=== PATIENT | male | born 1990 | race Caucasian/White ===

== ENCOUNTER 2018-01-27 17:59 | Emergency (ER) | payer BC ==
--- OUTSIDE RECORDS SUMMARY | 2018-01-27 18:02 | XMS REPORT | Clinical Summary ---
:1990 Author Organization [facility] Address [address] [place] [address] Care Team Providers Name Role Phone Asked, No Pcp Primary Care Provider Unavailable Allergies No Known Allergies Medications Not on file Active Problems Not on file Social History Tobacco Use Types Packs/Day Years Used Date Never Assessed Alcohol Use Drinks/Week oz/Week Comments Yes Sex Assigned at Date Recorded Not on file Job Start Date Occupation Industry Not on file Not on file Not on file Travel History Travel Start Travel End No recent travel history available. Last Filed Vital Signs Not on file Plan of Treatment Health Maintenance Due Date Last Done Comments INFLUENZA VACCINE 09/11/2017 Results Not on fileafter 01/26/2017 Insurance Payer Benefit Plan / Group Subscriber ID Type Phone Address BCBS BCBS CHOICE PPO/[employer]ER[employer] EMPL PPO xxxxxxxxxxxx PPO (Home) [place] [address] Advance Directives Patient has advance care planning documents on file. For more information, please contact:[address] [address]
[2018-01-27 19:22] LABS: Absolute Lymphocytes (CBC) 1.9 K/uL (0.7-4.9); Absolute Monocytes 1.3 K/uL (0.1-1.3); Absolute Neutrophil 8.8 K/uL (1.8-8.0); Basophils % 0.8 % (0-1.3); Hematocrit 43.1 % (39.6-49.0); Lymphocytes % 15.7 % (15.3-44.8); Monocytes % 10.4 % (3.3-12.3); Protime INR 1.24; RBC Red Blood Cell Count 4.77 M/uL (4.33-5.43)
[2018-01-27 19:30] LABS: ALT/SGPT 69 U/L (12-78); AST/SGOT 125 U/L (15-37); Alkaline Phosphatase 110 U/L (45-117); BUN Blood Urea Nitrogen 31 mg/dL (7-18); Bicarbonate 26 mmol/L (21-32); Bilirubin Direct 0.2 mg/dL (0-0.2); Bilirubin Total 0.7 mg/dL (0.2-1.0); Glucose Level 92 mg/dL (74-106); Potassium 3.5 mmol/L (3.5-5.1); Protein, Total 7.7 g/dL (6.4-8.2); Sodium Level 136 mmol/L (136-145)
[2018-01-27 22:02] LABS: Barbiturates NEGATIVE (NEGATIVE); Benzodiazepines NEGATIVE (NEGATIVE); Cocaine NEGATIVE (NEGATIVE); METHAMPHETAM POSITIVE (NEGATIVE); Methadone NEGATIVE (NEGATIVE); Opiates NEGATIVE (NEGATIVE); Phencyclidine NEGATIVE (NEGATIVE); THC Cannibis NEGATIVE (NEGATIVE)
[2018-01-27 22:15] LABS: Urine Blood NEGATIVE (NEG); Urine Glucose NEGATIVE (NEG); Urine Protein NEGATIVE (NEG); Urine Specific Gravity 1.025 (1.005-1.030)
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
--- NOTE | 2018-01-28 11:07 | EKG ---
Test Date: 2018-01-27 Test Time: 18:44:36 Machine Joint Cutter: BELEN MEASUREMENT RESULTS: Intervals: Rate: 50 TX: 134 QRSD: 96 QT: 444 QTc: 404 [place]: P: 55 TX: 134 QRS: 73 T: 66 INTERPRETIVE STATEMENTS: Sinus bradycardia Possible Left atrial enlargement Borderline ECG Compared to ECG 01/12/2010 07:23:33 Sinus rhythm no longer present Electronically Signed On 01-28-18 11:05:58 CHILD WELFARE COUNSELOR by Keny Ponce
[2018-01-30 13:55] LABS: HIV 1/2 Antibody Diff Not indicated.; HIV AG/AB 4TH GEN Non-reactive (Non-reactive)
[2018-01-30 21:47] LABS: HBsAG Nonreactive (Nonreactive); Hepatitis A IgM Antibody Nonreactive
== END 2018-01-28 02:57 | disposition home or self-care (01) ==
LOC: ER 17:59
DX: F29 Unspecified psychosis not due to a substance or known physiological condition (principal); T43.625A Adverse effect of amphetamines, initial encounter; F41.9 Anxiety disorder, unspecified
CPT/HCPCS: 36415; 80048; 80074; 80076; 80307; 80320; 80329; 81003; 85025; 85610; 87389; 93005; 99285

== ENCOUNTER 2018-11-05 18:53 | Emergency (ER) | payer BC, SELFPAY ==
[2018-11-05] MEDS ORDERED: NA CHLORIDE 0.9% 1,000 ML ONE (19:48)
[2018-11-05 20:04] LABS: Absolute Lymphocytes (CBC) 1.7 K/uL (0.7-4.9); Basophils % 0.8 % (0-1.3); Hematocrit 40.9 % (39.6-49.0); Lymphocytes % 34.3 % (15.3-44.8); MPV 7.7 fL (7.6-11.3); Protime INR 0.93; RBC Red Blood Cell Count 4.67 M/uL (4.33-5.43)
--- NOTE | 2018-11-05 20:06 | RAD REPORT ---
EXAM DESCRIPTION: Zoila Single View11/05/2018 7:50 pm CLINICAL HISTORY: Chest pain COMPARISON: 2009 FINDINGS: The lungs appear clear of acute infiltrate. The heart is normal size IMPRESSION: No acute abnormalities displayed
[2018-11-05 20:26] LABS: ALT/SGPT 80 U/L (12-78); AST/SGOT 54 U/L (15-37); Albumin 4.4 g/dL (3.4-5.0); Alkaline Phosphatase 102 U/L (45-117); BUN Blood Urea Nitrogen 15 mg/dL (7-18); Bicarbonate 27 mmol/L (21-32); Bilirubin Direct < 0.1 mg/dL (0-0.2); Bilirubin Total 0.3 mg/dL (0.2-1.0); Glucose Level 98 mg/dL (74-106); Magnesium 1.7 mg/dL (1.8-2.4); NT PRO-BNP 16 pg/mL (<125); Potassium 3.5 mmol/L (3.5-5.1); Protein, Total 7.9 g/dL (6.4-8.2); Sodium Level 138 mmol/L (136-145); Troponin (Emerg Dept Use Only) < 0.02 ng/mL (0.0-0.045)
--- NOTE | 2018-11-05 20:56 | ER ---
Nurse's Notes [facility] Name: Shaggy Castañeda Age: 28 yrs Sex: Male : 1990 Arrival Date: 11/05/2018 Time: 18:55 Bed 5 Private MD: Diagnosis: Chest pain, unspecified-non cardiac;Anxiety disorder, unspecified;Essential (primary) hypertension;Hypomagnesemia Presentation: 11/05 19:03 Presenting complaint: Patient states: i was at work my chest started hurting about 5, i tw2 felt a panic attack coming on, i called my dad he picked me up and took me to [facility] and my pressure was really high 190's. Transition of care: patient was not received from another setting of care. Onset of symptoms was November 05, 2018. Risk Assessment: Do you want to hurt yourself or someone else? Patient reports no desire to harm self or others. Initial Sepsis Screen: Does the patient meet any 2 criteria? No. Patient's initial sepsis screen is negative. Does the patient have a suspected source of infection? No. Patient's initial sepsis screen is negative. Care prior to arrival: None. 19:03 Method Of Arrival: Ambulatory tw2 19:03 Acuity: NEGRO 3 tw2 Triage Assessment: 19:06 General: Appears in no apparent distress. Behavior is anxious. Pain: Complains of pain tw2 in chest. Cardiovascular: Reports chest pain. Historical: - Allergies: 19:05 No Known Allergies; tw2 - Home Meds: 19:05 BuSpar Oral [Active]; Seroquel Oral [Active]; Wellbutrin Oral [Active]; Buspirone Oral tw2 [Active]; Lexapro Oral [Active]; - PMHx: 19:05 Anxiety; tw2 - PSHx: 19:05 None; tw2 - Immunization history:: Adult Immunizations. - Social history:: Smoking status: Patient uses alcohol, "6 pk every other night". - Ebola Screening: : Patient denies travel to an Ebola-affected area in the 21 days before illness onset. - Family history:: not pertinent. Screenin:20 Abuse screen: Denies threats or abuse. Nutritional screening: No deficits noted. bb Tuberculosis screening: No symptoms or risk factors identified. Fall Risk None identified. Assessment: 19:20 General: Appears in no apparent distress. Behavior is calm, cooperative. Pain: bb Complains of pain in chest Pain does not radiate. Pain began today. Neuro: Level of Consciousness is awake, alert, obeys commands, Oriented to person, place, time, situation. Cardiovascular: Heart tones S1 S2 present Capillary refill < 3 seconds Patient's skin is warm and dry. Pulses are all present. Edema is absent. Respiratory: Respiratory effort is even, unlabored, Respiratory pattern is regular, Breath sounds are clear bilaterally. GI: Abdomen is non-distended. Derm: Skin is pink, warm \\T\\ dry. Musculoskeletal: Circulation, motion, and sensation intact. 21:14 Reassessment: Patient and/or family updated on plan of care and expected duration. Pain tl1 level reassessed. Patient is alert, oriented x 3, equal unlabored respirations, skin warm/dry/pink. Patient denies pain at this time. Patient states feeling better. Patient states symptoms have improved. Cardiovascular: Denies chest pain. Respiratory: Airway is patent Trachea midline Respiratory effort is even, unlabored, Respiratory pattern is regular, symmetrical, Breath sounds are clear bilaterally. Vital Signs: 19:06 BP 160 / 101; Pulse 106; Resp 18; Temp 98.4(O); Pulse Ox 100% on R/A; Weight 70.31 kg tw2 (R); Pain 4/10; 20:00 BP 151 / 102; Pulse 118; Resp 17; Pulse Ox 98% ; Pain 4/10; tl1 21:12 BP 136 / 100; Pulse 114; Resp 17; Temp 98.4; Pulse Ox 98% on R/A; Pain 4/10; tl1 ED Course: 18:55 Patient arrived in ED. as 19:04 Triage completed. tw2 19:06 Arm band placed on. tw2 19:07 EKG completed in triage. Results shown to MD. Antipyretics given from triage as ordered tw2 by an ER provider. Antipyretics given from triage as ordered by an ER provider. 19:19 Inserted saline lock: 20 gauge in right antecubital area, using aseptic technique. jb5 Blood collected. 19:20 Patient has correct armband on for positive identification. Bed in low position. Call bb light in reach. Adult w/ patient. 19:20 EKG done, by ED staff, reviewed by Maurisio Gastelum MD. bb 19:22 vehicle monitor technician on. Pulse ox on. NIBP on. jb5 19:24 Joy Batista, RN is Primary Nurse. bb 19:33 Maurisio Gastelum MD is Attending Physician. [facility] 19:52 XRAY Chest (1 view) In Process Unspecified. EDVT 20:55 Margarito Olguin MD is Referral Physician. robb 21:15 No provider procedures requiring assistance completed. IV discontinued, intact, tl1 bleeding controlled, No redness/swelling at site. Pressure dressing applied. Patient maintains SpO2 saturation greater than 95% on room air. Administered Medications: 19:45 Drug: NS 0.9% 1000 ml Route: IV; Rate: 1 bolus; Site: right antecubital; bb 21:00 Follow up: IV Status: Completed infusion; IV Intake: 1000ml tl1 20:58 Drug: Magnesium Oxide 400 mg Route: PO; tl1 21:12 Follow up: Response: No adverse reaction tl1 Intake: 21:00 IV: 1000ml; Total: 1000ml. tl1 Outcome: 20:56 Discharge ordered by . [facility] 21:15 Discharged to home ambulatory. tl1 21:15 Condition: good 21:15 Discharge instructions given to patient, family, Instructed on discharge instructions, follow up and referral plans. Demonstrated understanding of instructions, follow-up care. 21:16 Patient left the ED. tl1 Signatures: Dispatcher [employer] EDVT Maurisio Gastelum MD MD cha Martinez, Amelia as Joy Batista, RN RN bb Marina Catherine RN RN tl1 Katja Mead RN RN tw2 Halie Sun jb
--- NOTE | 2018-11-05 20:56 | EDPHYS ---
Physician Documentation [facility] Name: Shaggy Castañeda Age: 28 yrs Sex: Male : 1990 Arrival Date: 11/05/2018 Time: 18:55 Bed 5 Private MD: ED Physician Maurisio Gastelum HPI: 11/05 19:39 This 28 yrs old Male presents to ER via Ambulatory with complaints of Chest robb Pain, High Blood Pressure. 19:39 The patient or guardian reports chest pain that is located primarily in the anterior robb chest wall, bilaterally. The pain does not radiate. Associated signs and symptoms: Pertinent positives: anxiety. The chest pain is described as aching. Modifying factors: The symptoms are alleviated by anxiety. Severity of pain: At its worst the pain was mild in the emergency department the pain has resolved and did so just prior to arrival. The patient has experienced similar episodes in the past, multiple times. Historical: - Allergies: 19:05 No Known Allergies; tw2 - Home Meds: 19:05 BuSpar Oral [Active]; Seroquel Oral [Active]; Wellbutrin Oral [Active]; Buspirone Oral tw2 [Active]; Lexapro Oral [Active]; - PMHx: 19:05 Anxiety; tw2 - PSHx: 19:05 None; tw2 - Immunization history:: Adult Immunizations. - Social history:: Smoking status: Patient uses alcohol, "6 pk every other night". - Ebola Screening: : Patient denies travel to an Ebola-affected area in the 21 days before illness onset. - Family history:: not pertinent. ROS: 19:39 Constitutional: Negative for fever, chills, and weight loss, Eyes: Negative for injury, robb pain, redness, and discharge, ENT: Negative for injury, pain, and discharge, Neck: Negative for injury, pain, and swelling, Respiratory: Negative for shortness of breath, cough, wheezing, and pleuritic chest pain, Abdomen/GI: Negative for abdominal pain, nausea, vomiting, diarrhea, and constipation, Back: Negative for injury and pain, : Negative for injury, bleeding, discharge, and swelling, MS/Extremity: Negative for injury and deformity, Skin: Negative for injury, rash, and discoloration, Neuro: Negative for headache, weakness, numbness, tingling, and seizure, Allergy/Immunology: Negative for hives, rash, and allergies, Endocrine: Negative for neck swelling, polydipsia, polyuria, polyphagia, and marked weight changes, Hematologic/Lymphatic: Negative for swollen nodes, abnormal bleeding, and unusual bruising. 19:39 Cardiovascular: Positive for chest pain, of the chest. 19:39 Psych: Positive for anxiety. Exam: 19:39 Constitutional: This is a well developed, well nourished patient who is awake, alert, robb and in no acute distress. Head/Face: Normocephalic, atraumatic. Eyes: Pupils equal round and reactive to light, extra-ocular motions intact. Lids and lashes normal. Conjunctiva and sclera are non-icteric and not injected. Cornea within normal limits. Periorbital areas with no swelling, redness, or edema. ENT: Nares patent. No nasal discharge, no septal abnormalities noted. Tympanic membranes are normal and external auditory canals are clear. Oropharynx with no redness, swelling, or masses, exudates, or evidence of obstruction, uvula midline. Mucous membranes moist. Neck: Trachea midline, no thyromegaly or masses palpated, and no cervical lymphadenopathy. Supple, full range of motion without nuchal rigidity, or vertebral point tenderness. No Meningismus. Chest/axilla: Normal chest wall appearance and motion. Nontender with no deformity. No lesions are appreciated. Cardiovascular: Regular rate and rhythm with a normal S1 and S2. No gallops, murmurs, or rubs. Normal PMI, no JVD. No pulse deficits. Respiratory: Lungs have equal breath sounds bilaterally, clear to auscultation and percussion. No rales, rhonchi or wheezes noted. No increased work of breathing, no retractions or nasal flaring. Abdomen/GI: Soft, non-tender, with normal bowel sounds. No distension or tympany. No guarding or rebound. No evidence of tenderness throughout. Back: No spinal tenderness. No costovertebral tenderness. Full range of motion. Male : Normal genitalia with no discharge or lesions. Skin: Warm, dry with normal turgor. Normal color with no rashes, no lesions, and no evidence of cellulitis. MS/ Extremity: Pulses equal, no cyanosis. Neurovascular intact. Full, normal range of motion. Neuro: Awake and alert, GCS 15, oriented to person, place, time, and situation. Cranial nerves II-XII grossly intact. Motor strength 5/5 in all extremities. Sensory grossly intact. Cerebellar exam normal. Normal gait. Psych: Awake, alert, with orientation to person, place and time. Behavior, mood, and affect are within normal limits. 19:39 Musculoskeletal/extremity: DVT Exam: No signs of deep vein thrombosis. no pain, no swelling, no tenderness, negative Homans' sign noted on exam, no appreciated bluish discoloration, no erythema, no increased warmth. Vital Signs: 19:06 BP 160 / 101; Pulse 106; Resp 18; Temp 98.4(O); Pulse Ox 100% on R/A; Weight 70.31 kg tw2 (R); Pain 4/10; 20:00 BP 151 / 102; Pulse 118; Resp 17; Pulse Ox 98% ; Pain 4/10; tl1 21:12 BP 136 / 100; Pulse 114; Resp 17; Temp 98.4; Pulse Ox 98% on R/A; Pain 4/10; tl1 MDM: 19:33 Patient medically screened. [facility] 19:42 Data reviewed: vital signs, nurses notes, lab test result(s), EKG, radiologic studies, robb plain films. 11/05 19:38 Order name: Basic Metabolic Panel; Complete Time: 20:54 11/05 19:38 Order name: CBC with Diff; Complete Time: 20:54 11/05 19:38 Order name: LFT's; Complete Time: 20:54 11/05 19:38 Order name: Magnesium; Complete Time: 20:54 11/05 19:38 Order name: NT PRO-BNP; Complete Time: 20:54 11/05 19:38 Order name: PT-INR; Complete Time: 20:54 11/05 19:38 Order name: Troponin (emerg Dept Use Only); Complete Time: 20:54 11/05 19:38 Order name: XRAY Chest (1 view); Complete Time: 20:54 11/05 19:38 Order name: EKG; Complete Time: 19:39 11/05 19:38 Order name: Cardiac monitoring; Complete Time: 19:44 11/05 19:38 Order name: EKG - Nurse/Tech; Complete Time: 19:44 11/05 19:38 Order name: IV Saline Lock; Complete Time: 19:44 bb 11/05 19:38 Order name: Labs collected and sent; Complete Time: :44 11/05 19:38 Order name: O2 Per Protocol; Complete Time: :44 bb 11/05 19:38 Order name: O2 Sat Monitoring; Complete Time: :44 bb Administered Medications: 19:45 Drug: NS 0.9% 1000 ml Route: IV; Rate: 1 bolus; Site: right antecubital; bb 21:00 Follow up: IV Status: Completed infusion; IV Intake: 1000ml tl1 20:58 Drug: Magnesium Oxide 400 mg Route: PO; tl1 21:12 Follow up: Response: No adverse reaction tl1 Disposition: 11/05/18 20:56 Discharged to Home. Impression: Chest pain, unspecified - non cardiac, Anxiety disorder, unspecified, Essential (primary) hypertension, Hypomagnesemia. - Condition is Stable. - Discharge Instructions: Panic Attacks, Nonspecific Chest Pain, Hypertension, Hypomagnesemia, Nonspecific Chest Pain, [id number], Hypertension, [id number], Generalized Anxiety Disorder. - Medication Reconciliation Form, Thank You Letter, Antibiotic Education, Prescription Opioid Use form. - Follow up: Private Physician; When: 2 - 3 days; Reason: Recheck today's complaints, Continuance of care, Re-evaluation by your physician. Follow up: Margarito Olguin; When: 2 - 3 days; Reason: Recheck today's complaints, Continuance of care, Re-evaluation by your physician. - Problem is new. - Symptoms have improved. Signatures: Dispatcher [employer] EDMS Maurisio Gastelum MD MD cha Ballard, Brenda, RN RN bb Marina Catherine, RN RN tl1 Katja Mead RN RN tw2 Corrections: (The following items were deleted from the chart) 21:16 20:56 11/05/2018 20:56 Discharged to Home. Impression: Chest pain, unspecified - non tl1 cardiac; Anxiety disorder, unspecified; Essential (primary) hypertension; Hypomagnesemia. Condition is Stable. Discharge Instructions: Panic Attacks, Nonspecific Chest Pain, Nonspecific Chest Pain, [id number], Generalized Anxiety Disorder, Hypertension, Hypertension, [id number]. Forms are Medication Reconciliation Form, Thank You Letter, Antibiotic Education, Prescription Opioid Use. Follow up: Private Physician; When: 2 - 3 days; Reason: Recheck today's complaints, Continuance of care, Re-evaluation by your physician. Follow up: Margarito Olguin; When: 2 - 3 days; Reason: Recheck today's complaints, Continuance of care, Re-evaluation by your physician. Problem is new. Symptoms have improved. robb
[2018-11-05] MEDS ORDERED: MAGNESIUM OXIDE 400 MG TAB ONE (20:59)
[2018-11-05 21:37] VITALS: TEMP 98.4
[2018-11-05 21:39] VITALS: O2SAT 98
[2018-11-05 21:41] VITALS: BP 136/100
--- NOTE | 2018-11-07 08:43 | EKG ---
Test Date: 2018-11-05 Test Time: 19:03:59 Boat Builder: DEISI MEASUREMENT RESULTS: Intervals: Rate: 93 ND: 144 QRSD: 86 QT: 362 QTc: 450 [place]: P: 37 ND: 144 QRS: 54 T: 60 INTERPRETIVE STATEMENTS: Normal sinus rhythm Normal ECG Compared to ECG 01/27/2018 18:44:36 Sinus bradycardia no longer present Electronically Signed On 11-07-18 08:41:40 CDT by Audi Nolasco
== END 2018-11-05 21:16 | disposition home or self-care (01) ==
LOC: ER 18:53
DX: F41.9 Anxiety disorder, unspecified (principal); E83.42 Hypomagnesemia; I10 Essential (primary) hypertension
CPT/HCPCS: 36415; 71045; 80048; 80076; 83735; 83880; 84484; 85025; 85610; 93005; 96360; 99285; J7030

== ENCOUNTER 2019-05-10 19:29 | Emergency (ER) | payer SELFPAY ==
[2019-05-10] MEDS ORDERED: NA CHLORIDE 0.9% 1,000 ML ONE ×2 (20:09→20:16)
[2019-05-10 20:10] LABS: Absolute Lymphocytes (CBC) 0.7 K/uL (0.7-4.9); Basophils % 0.7 % (0-1.3); Hematocrit 42.2 % (39.6-49.0); Lymphocytes % 12.5 % (15.3-44.8); MPV 7.1 fL (7.6-11.3); RBC Red Blood Cell Count 4.59 M/uL (4.33-5.43)
[2019-05-10] MEDS ORDERED: THIAMINE 200 MG/2 ML INJ ONE (20:10)
[2019-05-10] MEDS ORDERED: DIAZEPAM 10 MG/2 ML INJ SYRINGE ONE ×2 (20:10→22:09)
[2019-05-10] MEDS ORDERED: MULTIVITAMINS 10 ML VIAL (INJ) IV ONE (20:11)
[2019-05-10] MEDS ORDERED: FOLIC ACID 5 MG/ML VIAL ONE (20:12)
[2019-05-10 20:25] LABS: BUN Blood Urea Nitrogen 10 mg/dL (7-18); Bicarbonate 24 mmol/L (21-32); Glucose Level 111 mg/dL (74-106); Magnesium 2.4 mg/dL (1.8-2.4); Potassium 3.4 mmol/L (3.5-5.1); Sodium Level 141 mmol/L (136-145)
--- NOTE | 2019-05-10 21:52 | EDPHYS ---
Physician Documentation [facility] Name: Shaggy Castañeda Age: 28 yrs Sex: Male : 1990 Arrival Date: 05/10/2019 Time: 19:31 Bed 17 Private MD: ED Physician Zohaib Barnett HPI: 05/09 20:29 This 28 yrs old Male presents to ER via Ambulatory with complaints of Alcohol rn Withdrawal. 20:29 Reports here for IV fluids. Reports has been decreasing ETOH intake lately, normally rn drinks several bottles of wine daily for last 6 months, likes the feeling, but feels shaky, nauseated, vomiting, and not drinking much water. NO fever. No trauma. Denies other drugs. . Onset: The symptoms/episode began/occurred at an unknown time. Severity of symptoms: At their worst the symptoms were mild in the emergency department the symptoms are unchanged. The patient has not experienced similar symptoms in the past. The patient has not recently seen a physician. Historical: - Allergies: 19:42 No Known Allergies; ll1 - PMHx: 19:42 Anxiety; ll1 - PSHx: 19:42 None; ll1 - Immunization history:: Flu vaccine status is unknown. - Social history:: Smoking status: Patient reports the use of cigarette tobacco products, smokes one-half pack cigarettes per day, Patient uses alcohol, on a daily basis. Patient/guardian denies using street drugs. - Family history:: not pertinent. - Hospitalizations: : No recent hospitalization is reported. ROS: 20:29 Constitutional: Negative for fever, chills, and weight loss, Eyes: Negative for injury, rn pain, redness, and discharge, Neck: Negative for injury, pain, and swelling, Cardiovascular: Negative for chest pain, palpitations, and edema, Respiratory: Negative for shortness of breath, cough, wheezing, and pleuritic chest pain, Abdomen/GI: Negative for abdominal pain, vomiting, diarrhea, and constipation, Back: Negative for injury and pain, : Negative for injury, bleeding, discharge, and swelling, MS/Extremity: Negative for injury and deformity, Skin: Negative for injury, rash, and discoloration, Neuro: Negative for headache, numbness, tingling, and seizure, + tremors and shaking Exam: 20:29 Constitutional: This is a well developed, well nourished patient who is awake, alert, rn and in no acute distress. Ambulatory to room and to bathroom. Head/Face: Normocephalic, atraumatic. Eyes: Pupils equal round and reactive to light, extra-ocular motions intact. Lids and lashes normal. Conjunctiva and sclera are non-icteric and not injected. Cornea within normal limits. Periorbital areas with no swelling, redness, or edema. ENT: dry MM with tongue fasciculations Cardiovascular: Tachycardic, regular Respiratory: No increased work of breathing, no retractions or nasal flaring. Abdomen/GI: soft, non-tender MS/ Extremity: Pulses equal, no cyanosis. Neurovascular intact. Full, normal range of motion. Equal circumference. Neuro: Awake and alert, GCS 15, oriented to person, place, time, and situation. Cranial nerves II-XII grossly intact. Motor strength 5/5 in all extremities. Sensory grossly intact. Cerebellar exam normal. Normal gait. + coarse upper ext tremors. Vital Signs: 19:40 BP 171 / 102; Pulse 106; Resp 19; Temp 98.8; Pulse Ox 99% ; Pain 0/10; ll1 21:39 BP 144 / 102; Pulse 99; Resp 18; Pulse Ox 100% on R/A; mg2 22:19 BP 154 / 100; Pulse 86; Resp 18; Temp 98.5; Pulse Ox 100% on R/A; mg2 22:56 BP 145 / 100; Pulse 86; Resp 18; Temp 98.5; Pulse Ox 100% on R/A; mg2 MDM: 19:41 Patient medically screened. rn 21:50 Differential Diagnosis dehydration, mild ETOH withdrawal. Data reviewed: vital signs, rn nurses notes, lab test result(s), and as a result, I will discharge patient. Counseling: I had a detailed discussion with the patient and/or guardian regarding: the historical points, exam findings, and any diagnostic results supporting the discharge/admit diagnosis, lab results, the need for outpatient follow up, to return to the emergency department if symptoms worsen or persist or if there are any questions or concerns that arise at home. Response to treatment: the patient's symptoms have markedly improved after treatment, patient is well hydrated. and as a result, I will discharge patient. Special discussion: I discussed with the patient/guardian in detail that at this point there is no indication for admission to the hospital. It is understood, however, that if the symptoms persist or worsen the patient needs to return immediately for re-evaluation. 21:50 ED course: Recommend f/u and some sort of detox program, patient wants to go home, rn feels much better. . 05/09 19:50 Order name: CBC with Diff; Complete Time: 20:32 rn 05/09 19:50 Order name: Basic Metabolic Panel; Complete Time: 20:32 rn 05/09 19:50 Order name: Magnesium; Complete Time: 20:32 rn 05/09 19:50 Order name: ETOH Level; Complete Time: 20:32 rn 05/09 19:50 Order name: IV Start; Complete Time: 20:33 rn Administered Medications: 20:21 Drug: Banana Bag - (NS 0.9% 1000 ml, foLIC Acid 1 mg, Thiamine 100 mg, Multivitamin 1 rr5 amp) Route: IV; Rate: calculated rate; Site: right antecubital; 20:23 Drug: Valium 10 mg Route: IVP; Site: right antecubital; rr5 22:18 Follow up: Response: No adverse reaction mg2 20:25 Drug: NS 0.9% 1000 ml Route: IV; Rate: 1000 ml; Site: right antecubital; rr5 22:18 Follow up: Response: No adverse reaction; IV Status: Completed infusion; IV Intake: mg2 1000ml 22:14 Drug: Valium 10 mg Route: IVP; Site: right antecubital; mg2 22:56 Follow up: Response: No adverse reaction mg2 Disposition: 05/10/19 21:51 Discharged to Home. Impression: Dehydration, Alcohol dependence with withdrawal, uncomplicated. - Condition is Stable. - Discharge Instructions: Alcohol Withdrawal, Alcohol Use Disorder, Dehydration, Adult. - Prescriptions for Zofran ODT 4 mg Oral tablet,disintegrating - place 1 tablet by TRANSLINGUAL route every 8 hours As needed; 20 tablet. - Medication Reconciliation Form, Thank You Letter, Antibiotic Education, Prescription Opioid Use form. - Follow up: Private Physician; When: As needed; Reason: Recheck today's complaints, Re-evaluation by your physician. - Problem is new. - Symptoms have improved. Signatures: Dispatcher [employer] EDMS Zohaib Barnett MD MD rn Gardose, Michele, RN RN mg2 Emilio Villafuerte, RN RN rr5 Alena Brady RN RN ll1 Corrections: (The following items were deleted from the chart) 22:58 21:51 05/10/2019 21:51 Discharged to Home. Impression: Dehydration; Alcohol dependence mg2 with withdrawal, uncomplicated. Condition is Stable. Discharge Instructions: Alcohol Withdrawal, Alcohol Use Disorder, Dehydration, Adult. Prescriptions for Zofran ODT 4 mg Oral tablet,disintegrating - place 1 tablet by TRANSLINGUAL route every 8 hours As needed; 20 tablet. and Forms are Medication Reconciliation Form, Thank You Letter, Antibiotic Education, Prescription Opioid Use. Follow up: Private Physician; When: As needed; Reason: Recheck today's complaints, Re-evaluation by your physician. Problem is new. Symptoms have improved. rn
--- NOTE | 2019-05-10 21:52 | ER ---
Nurse's Notes [facility] Name: Shaggy Castañeda Age: 28 yrs Sex: Male : 1990 Arrival Date: 05/10/2019 Time: 19:31 Bed 17 Private MD: Diagnosis: Dehydration;Alcohol dependence with withdrawal, uncomplicated Presentation: 05/09 19:40 Chief complaint: Patient states: "I need fluids now." He has been drinking daily for 6 ll1 months. Drinks 6 wine drinks per day. + shakey. Coronavirus screen: Patient denies fever greater than 100.4F, cough, shortness of breath, or difficulty breathing. Proceed with normal triage process. Ebola Screen: Patient denies travel to an Ebola-affected area in the 21 days before illness onset. Initial Sepsis Screen: Does the patient meet any 2 criteria? HR > 90 bpm. No. Patient's initial sepsis screen is negative. Does the patient have a suspected source of infection? No. Patient's initial sepsis screen is negative. Risk Assessment: Do you want to hurt yourself or someone else? Patient reports no desire to harm self or others. 19:40 Method Of Arrival: Ambulatory ll1 19:40 Acuity: NEGRO 3 ll1 Historical: - Allergies: 19:42 No Known Allergies; ll1 - PMHx: 19:42 Anxiety; ll1 - PSHx: 19:42 None; ll1 - Immunization history:: Flu vaccine status is unknown. - Social history:: Smoking status: Patient reports the use of cigarette tobacco products, smokes one-half pack cigarettes per day, Patient uses alcohol, on a daily basis. Patient/guardian denies using street drugs. - Family history:: not pertinent. - Hospitalizations: : No recent hospitalization is reported. Screenin:34 Abuse screen: Denies threats or abuse. Denies injuries from another. Nutritional rr5 screening: No deficits noted. Tuberculosis screening: No symptoms or risk factors identified. Fall Risk IV access (20 points). Total Mcbride Fall Scale indicates No Risk (0-24 pts). Assessment: 21:37 General: Appears in no apparent distress. comfortable, Behavior is calm, cooperative. mg2 Pain: Denies pain. Neuro: Level of Consciousness is awake, alert, obeys commands, Oriented to person, place, time, situation. Cardiovascular: Capillary refill < 3 seconds Patient's skin is warm and dry. Respiratory: Airway is patent Respiratory effort is even, unlabored, Respiratory pattern is regular, symmetrical. GI:. : No signs and/or symptoms were reported regarding the genitourinary system. EENT: No signs and/or symptoms were reported regarding the EENT system. Derm: Skin is intact, is healthy with good turgor, Skin is pink, warm \\T\\ dry. normal. Musculoskeletal: Circulation, motion, and sensation intact. Capillary refill < 3 seconds. 22:11 Reassessment: pt reports his father is unavailable to transport pt to home, reports his sg mother is out of town, dye house supervisor notified and a cab will be called for pt to be discharged to home, pt reports feeling fine at this time for a cab ride to home. 22:57 Reassessment: Patient states feeling better. Patient states symptoms have improved. mg2 Vital Signs: 19:40 BP 171 / 102; Pulse 106; Resp 19; Temp 98.8; Pulse Ox 99% ; Pain 0/10; ll1 21:39 BP 144 / 102; Pulse 99; Resp 18; Pulse Ox 100% on R/A; mg2 22:19 BP 154 / 100; Pulse 86; Resp 18; Temp 98.5; Pulse Ox 100% on R/A; mg2 22:56 BP 145 / 100; Pulse 86; Resp 18; Temp 98.5; Pulse Ox 100% on R/A; mg2 ED Course: 19:31 Patient arrived in ED. ag3 19:41 Zohaib Barnett MD is Attending Physician. rn 19:42 Triage completed. ll1 19:42 Arm band placed on Patient placed in an exam room, on a stretcher. ll1 20:14 Sanket Farrell, CARRI is Primary Nurse. mg2 20:20 Inserted saline lock: 20 gauge in right antecubital area, using aseptic technique. rr5 Blood collected. 20:33 Patient has correct armband on for positive identification. Placed in gown. Bed in low rr5 position. manager monitoring on. Pulse ox on. NIBP on. 21:38 No provider procedures requiring assistance completed. mg2 22:57 IV discontinued, intact, bleeding controlled, No redness/swelling at site. Pressure mg2 dressing applied. Administered Medications: 20:21 Drug: Banana Bag - (NS 0.9% 1000 ml, foLIC Acid 1 mg, Thiamine 100 mg, Multivitamin 1 rr5 amp) Route: IV; Rate: calculated rate; Site: right antecubital; 20:23 Drug: Valium 10 mg Route: IVP; Site: right antecubital; rr5 22:18 Follow up: Response: No adverse reaction mg2 20:25 Drug: NS 0.9% 1000 ml Route: IV; Rate: 1000 ml; Site: right antecubital; rr5 22:18 Follow up: Response: No adverse reaction; IV Status: Completed infusion; IV Intake: mg2 1000ml 22:14 Drug: Valium 10 mg Route: IVP; Site: right antecubital; mg2 22:56 Follow up: Response: No adverse reaction mg2 Intake: 20:30 IV: 1000ml; Total: 1000ml. mg2 20:30 IV: 1000ml; Total: 2000ml. mg2 22:18 IV: 1000ml; Total: 3000ml. mg2 Outcome: 21:51 Discharge ordered by . rn 22:57 Discharged to home ambulatory. mg2 22:57 Condition: stable 22:57 Discharge instructions given to patient, Instructed on discharge instructions, follow up and referral plans. medication usage, Demonstrated understanding of instructions, follow-up care, medications, Prescriptions given X 1. 22:58 Patient left the ED. mg2 Signatures: Mo Peterson RN CARRI Zohaib Barnett MD MD rn Gardose, Michele RN CARRI mg2 Cassie Quiñonez Raymond RN RN rr5 Alena Brady RN RN ll1
[2019-05-10 23:42] VITALS: O2SAT 100
[2019-05-10 23:44] VITALS: TEMP 98.5
[2019-05-10 23:45] VITALS: BP 145/100
== END 2019-05-10 22:58 | disposition home or self-care (01) ==
LOC: ER 19:29
DX: F10.239 Alcohol dependence with withdrawal, unspecified (principal); F17.210 Nicotine dependence, cigarettes, uncomplicated
CPT/HCPCS: 36415; 80048; 80320; 83735; 85025; 96361; 96374; 96375; 99284; J3360; J3411; J7030